=== PATIENT | female | born 1945 | race Caucasian/White ===

== ENCOUNTER → 2016-07-15 | Day surgery (SDC) | payer OTHER ==
[~2016-07-15] MED LIST: ACETAMINOPHEN/HYDROcodone 325 MG/5 MG TAB ONE; BUPIVACAINE/EPINEPHRINE 0.25% 50 ML VIAL ONE; ISOSULFAN BLUE 50 MG/5 ML VIAL SQ ONE; LACTATED RINGER'S 1000 ML INJ 1,000 ML ONE; MEPERIDINE HCL 25 MG/ML VIAL ONE; MIDAZOLAM HCL 2 MG/2 ML VIAL ONE; MORPHINE SULFATE 4 MG/ML INJ ONE; ONDANSETRON HCL 4 MG/2 ML VIAL IV PUSH ONE; PROPOFOL 100 MG/10 ML INJ IV ONE; ceFAZolin 2 GM PREMIX 50 ML ONE
--- NOTE | 2016-07-15 15:05 | TN ---
cc: SHAILESH PORTER M.D. DATE OF SURGERY: 07/15/2016 PREOPERATIVE DIAGNOSIS Left breast invasive lobular carcinoma. POSTOPERATIVE DIAGNOSIS Left breast invasive lobular carcinoma. PROCEDURE 1. Injection isosulfan blue dye, left breast. 2. Left total mastectomy. 3. Left axillary sentinel lymph node biopsy and axillary sampling. 4. Placement of CAITLIN dressing. SURGEON Dr. Shailesh Porter [employer] [facility] ANESTHESIA General. INDICATIONS This is a very pleasant [id number] woman who presented to me with a new diagnosis of invasive lobular carcinoma of the left breast. MRI demonstrated an additional area of enhancement in the left breast that was evaluated with ultrasound and was not seen. Recommendation is made for MR-guided biopsy. The patient, however, did not wish to pursue any further biopsies or evaluations and elected to proceed with a left mastectomy. INTRAOPERATIVE FINDINGS Left breast sent to pathology with a short stitch superior anterior and a long stitch lateral posterior. There was increased uptake adjacent to where the suture was placed but no identifiable lymph node could be found. A single sentinel lymph node with some blue staining was removed. It did not have radionuclide uptake. No radionuclide uptake was identified within the axilla, supraclavicular area, or the internal mammary chain. A lymph node sampling removing at least three more lymph nodes was performed. These were all sent to pathology, the sentinel node being marked with a silk suture. ESTIMATED BLOOD LOSS Less than 25 mL. This procedure was assisted by my nurse practitioner. The specific skill set of a nurse practitioner was medically necessary to facilitate adequate visualization and efficient progression through the surgical procedure. During the surgical case the of audiovisual lead technician was at the back table providing appropriate instrumentation while the nurse practitioner was assisting me through the entirety of the case. DRAINS A 10 mm round fluted drain. DESCRIPTION OF PROCEDURE IN DETAIL The patient was identified as Alana Rodríguez, taken to the operating room and placed in supine position. Sequential compression devices were placed on bilateral lower extremities. Following induction of adequate general anesthesia with a laryngeal mask the left breast was prepped with an alcohol swab and 5 cc of isosulfan blue dye was injected in the peritumoral and subareolar position of the breast. The Navigator probe was then induced and a slight intake in the axilla was identified. The left breast and axilla were then prepped and draped in the usual sterile fashion with Betadine. A timeout procedure had been performed prior to the injection of the isosulfan blue dye to everyone's satisfaction within the room. The proposed incision was made with a marking pen, elliptical / clam-shaped in nature and the incision was carried out with a scalpel. Hemostasis was controlled with electrocautery. Superior and inferior skin flaps were then developed with electrocautery between the subcutaneous fatty tissue and breast tissue. The breast was then removed from a superomedial to inferolateral direction using the electrocautery. The breast was from the axillary tissue, removed in its entirety and marked as discussed above. The Navigator probe was used to attempt to identify any sentinel lymph nodes within the axillary tail of the breast. There was increased uptake but an isolated lymph node could not be identified. The breast was passed off the field for pathologic evaluation. The Navigator probe was then used within the axilla. No identifiable increased uptake was discovered. A slightly greenish-blue hued lymph node was identified and from surrounding tissues. Again, tested for radionuclide uptake and none was seen. The lymph node was sent as a sentinel lymph node due to the slight staining with the dye. The lymphovascular structure was ligated with a 3-0 Vicryl ligature. At least three and additional lymph nodes in the neighborhood were excised from surrounding tissues using electrocautery and 3-0 Vicryl ties on the lymphovascular structures. They were sent as axillary sampling non-sentinel lymph nodes. The wound was irrigated copiously with saline. Small bleeding points were controlled with electrocautery. Through a separate small stab incision inferomedially a 10-Indonesian fluted drain was placed into the wound with the tip of the drain into the axilla. It was held position at the level of skin with a 3-0 nylon drain stitch. The wound was then closed in layers using 3-0 Vicryl and 4-0 Monocryl. A CAITLIN dressing was placed and a Biopatch placed around the drain exit site. The patient tolerated the procedure without apparent complication. Sponge, needle and instrument counts were correct at the end of the case. 30 cc of 0.25% Marcaine with epinephrine was injected through the drain for local anesthetic purposes. Shailesh Porter MD D[facility]/BT /2:26 PM /2:50 PM
== END | disposition home or self-care (01) ==
LOC: ESDC 06:58
PROVIDERS: ATTEND Surgery Trauma Surgery
DX: C50.912 Malignant neoplasm of unspecified site of left female breast (principal)
CPT/HCPCS: 00400; 01610; 19303; 38525; 38792; 88307; 88342; J0690; J2175; J2250; J2270; J2405; J3010; J7120; Q9968; 88341